=== PATIENT | male | born 1975 ===

== ENCOUNTER 2021-03-31 10:26 | Outpatient (CLI) | payer BC, SELFPAY ==
--- NOTE | 2021-03-31 11:30 | NEURO_ITS ---
Impression: # Complains of numbness of hands. # Left ulnar neuropathy across the elbow. # No Carpal Tunnel Syndrome. # Normal needle/EMG exam. Nerve Conduction Studies Anti Sensory Summary Table Stim Site NR Peak (ms) P-T Amp (?V) Site1 Site2 Delta-P (ms) Dist (cm) Ciaran (m/s) Left Median Anti Sensory (2-3nd Digit) Wrist 2.9 52.2 Wrist 2-3nd Digit 2.9 14.0 48 Wrist 3.0 31.6 Wrist 2-3nd Digit 2.9 14.0 48 Right Median Anti Sensory (2-3nd Digit) Wrist 3.3 37.5 Wrist 2-3nd Digit 3.3 14.0 42 Wrist 3.3 38.1 Wrist 2-3nd Digit 3.3 14.0 42 Left Radial Anti Sensory (Base 1st Digit) Wrist 2.3 15.8 Wrist Base 1st Digit 2.3 0.0 Right Radial Anti Sensory (Base 1st Digit) Wrist 2.6 18.4 Wrist Base 1st Digit 2.6 0.0 Left Sup Fibular Anti Sensory (Ant Lat Mall) 14 cm 3.3 14.4 14 cm Ant Lat Mall 3.3 16.0 48 Right Sup Fibular Anti Sensory (Ant Lat Mall) 14 cm 3.4 11.5 14 cm Ant Lat Mall 3.4 16.0 47 Left Sural Anti Sensory (Lat Mall) Calf 3.5 4.7 Calf Lat Mall 3.5 16.0 46 Right Sural Anti Sensory (Lat Mall) Calf 3.9 6.0 Calf Lat Mall 3.9 16.0 41 Left Ulnar Anti Sensory (5th Digit) Wrist 2.7 25.4 Wrist 5th Digit 2.7 14.0 52 Right Ulnar Anti Sensory (5th Digit) Wrist 2.7 56.3 Wrist 5th Digit 2.7 14.0 52 Motor Summary Table Stim Site NR Onset (ms) O-P Amp (mV) Site1 Site2 Delta-0 (ms) Dist (cm) Ciaran (m/s) Left Median Motor (Abd Poll Brev) Wrist 3.0 3.2 Elbow Wrist 6.0 33.0 55 Elbow 9.0 5.3 Right Median Motor (Abd Poll Brev) Wrist 3.1 5.8 Elbow Wrist 6.2 33.0 53 Elbow 9.3 4.9 Left Peroneal Motor (Vastus Med) Ankle 5.1 2.1 Popit Ankle 9.0 40.0 44 Popit 14.1 2.0 Right Peroneal Motor (Vastus Med) Ankle 5.2 1.5 Popit Ankle 8.4 37.0 44 Popit 13.6 1.7 Left Tibial Motor (Abd Beyer Brev) Ankle 5.0 9.1 Knee Ankle 9.1 44.0 48 Knee 14.1 7.4 Right Tibial Motor (Abd Beyre Brev) Ankle 4.7 11.5 Knee Ankle 9.4 40.0 43 Knee 14.1 7.1 Left Ulnar Motor (Abd Dig Minimi) Wrist 2.5 6.8 A Elbow Wrist 6.6 31.0 47 A Elbow 9.1 5.7 B Elbow Wrist 4.4 25.0 57 B Elbow 6.9 5.5 Right Ulnar Motor (Abd Dig Minimi) Wrist 2.9 5.9 A Elbow Wrist 5.4 30.0 56 A Elbow 8.3 4.7 F Wave Studies NR F-Lat (ms) L-R F-Lat (ms) Left Median (Mrkrs) (Abd Poll Brev) 31.64 0.35 Right Median (Mrkrs) (Abd Poll Brev) 31.29 0.35 Left Peroneal (Mrkrs) (EDB) 55.32 0.92 Right Peroneal (Mrkrs) (EDB) 56.24 0.92 Left Tibial (Mrkrs) (Abd Hallucis) 55.71 0.25 Right Tibial (Mrkrs) (Abd Hallucis) 55.47 0.25 Left Ulnar (Mrkrs) (Abd Dig Min) 32.11 0.29 Right Ulnar (Mrkrs) (Abd Dig Min) 32.40 0.29 EMG Side Muscle Nerve Root Ins Act Fibs Amp Dur Recrt Comment Right 1stDorInt Ulnar C8-T1 Nml Nml Nml Nml Nml Right Ext Indicis Radial (Post Int) C7-8 Nml Nml Nml Nml Nml Right Ext Digitorum Radial (Post Int) C7-8 Nml Nml Nml Nml Nml Right BrachioRad Radial C5-6 Nml Nml Nml Nml Nml Right PronatorTeres Median C6-7 Nml Nml Nml Nml Nml Right Abd Poll Brev Median C8-T1 Nml Nml Nml Nml Nml Right AntTibialis Dp Br Fibular L4-5 Nml Nml Nml Nml Nml Right Gastroc Tibial S1-2 Nml Nml Nml N
== END 2021-03-31 10:27 | disposition home or self-care (01) ==
LOC: ANHNEURO 10:28
PROVIDERS: Visit Provider Psychiatry & Neurology Neurology
DX: G56.22 Lesion of ulnar nerve, left upper limb (principal)
CPT/HCPCS: 95886; 95911